=== PATIENT | female | born 1935 | race African-American/Black ===

== ENCOUNTER → 2023-12-10 12:09 | Outpatient (REF) | payer MEDICARE, OTHER, SELFPAY | LOC: WDC 12:09 | PROVIDERS: ATTENDING PHYSICIAN Family Medicine | DX: Z12.31 Encounter for screening mammogram for malignant neoplasm of breast (principal) | CPT/HCPCS: 77063; 77067 ==

== ENCOUNTER → 2023-12-19 09:56 | Outpatient (REF) | payer MEDICARE, OTHER, SELFPAY | LOC: WDC 09:56 | PROVIDERS: ATTENDING PHYSICIAN Family Medicine | DX: R92.8 Other abnormal and inconclusive findings on diagnostic imaging of breast (principal) | CPT/HCPCS: 76642 ==